=== PATIENT | male | born 1950 | race Caucasian/White ===

== ENCOUNTER 2020-08-23 12:00 | IRF | payer MEDICARE, OTHER, SELFPAY ==
--- NOTE | 2020-08-23 13:06 | PC.NURSE ---
This patient, Brice Bull, was admitted to [facility] Room 224-01. Patient/family oriented to hospital policies and general routines including ID bracelet, bed and alarms, visiting hours, pain management, procedures, bathroom and other care routines, personal items, smoking policy, room service/diet, and visiting hours. Information on how to activate the Rapid Response Team has been discussed. Patient/Family are encouraged to report perceived risks to care and to ask questions if they do not understand what they are told or what they should do.
[2020-08-23 14:00] VITALS: BP 153/68; PULSE 88; RESP 20; TEMP 36.9; O2SAT 98
[2020-08-23] MEDS: TAMSULOSIN HCL 0.4 MG CAPSULE PO (16:55)
[2020-08-23] MEDS: ATORVASTATIN 40 MG TABLET PO (20:05)
[2020-08-23] MEDS: OPTI-GEN TAB 1 TABLET PO (20:05)
[2020-08-23] MEDS: ENOXAPARIN 30 MG/0.3 ML SYRINGE SUB-Q (20:06)
[2020-08-23 22:00] VITALS: BP 158/90; PULSE 77; RESP 18; TEMP 36.6; O2SAT 97
[2020-08-24 05:30] LABS: Basophils Percent Auto 0.5 % (0.2-1.2); Eosinophils Absolute Auto 0.2 K/mm3 (0-0.3); Eosinophils Percent Auto 2.5 % (0-4.4); Hematocrit 38.5 % (42.0-52.0); Hemoglobin 12.9 g/dL (14.0-18.0); Immature Granulocyte Absolute 0.02 K/mm3 (0.00-0.031); Immature Granulocyte Percent A 0.3 % (0-0.5); Lymphocytes Absolute Auto 1.94 K/mm3 (0.9-3.2); Lymphocytes Percent Auto 29.8 % (18.3-44.2); Mean Corpuscular HGB Conc 33.5 g/dl (32-36); Mean Corpuscular Hemoglobin 28.5 pg (26-34); Mean Platelet Volume 10.3 fl (7.4-10.4); Monocytes Absolute Auto 0.6 K/mm3 (0.1-0.6); Monocytes Percent Auto 9.8 % (2.6-8.5); Neutrophils Absolute Auto 3.7 K/mm3 (1.3-6.7); Neutrophils Percent Auto 57.1 % (45.5-73.1); Platelet Count Result 226 k/mm3 (150-375); Red Blood Count 4.53 M/mm3 (4.6-6.20); Red Cell Distribution Width 13.2 % (11.5-14.5); White Blood Count 6.5 K/mm3 (4.5-10.0)
[2020-08-24 05:44] LABS: Anion Gap 6 mmol/L (8-16); Blood Urea Nitrogen 21 mg/dL (9-20); Calcium 9.4 mg/dL (8.4-10.2); Carbon Dioxide 31 mmol/L (22-30); Chloride 103 mmol/L (98-107); Estimated CRCL calculation 76 ml/min; Estimated Glomerular Filt Rate > 60; Glucose 119 mg/dL (75-110); Potassium 3.6 mmol/L (3.4-5.0); Sodium 140 mmol/L (137-145)
[2020-08-24 06:00] VITALS: BP 156/65; PULSE 69; RESP 18; TEMP 36.2; O2SAT 97
[2020-08-24 06:53] LABS: Glucose Point of Care 101 (65-105)
[2020-08-24] MEDS: ENOXAPARIN 30 MG/0.3 ML SYRINGE SUB-Q ×2 (09:00→20:45)
[2020-08-24] MEDS: SENNA/DOCUSATE SODIUM TABLET 2 TAB PO (09:00)
[2020-08-24] MEDS: PANTOPRAZOLE 40 MG TABLET PO (09:00)
[2020-08-24] MEDS: metFORMIN HCL XR 500 MG TAB.SR.24H PO (09:00)
[2020-08-24] MEDS: ASPIRIN 81 MG CHEWABLE TABLET PO (09:00)
[2020-08-24] MEDS: LOSARTAN POTASSIUM 50 MG TABLET PO (09:01)
[2020-08-24] MEDS: OPTI-GEN TAB 1 TABLET PO ×2 (09:01→20:34)
[2020-08-24] MEDS: MULTIVITAMINS THERAPEUTIC TAB (*BKC) 1 TABLET PO (09:01)
[2020-08-24] MEDS: polyethylene glycoL 3350 17 GM POWD.PACK PO (09:01)
--- NOTE | 2020-08-24 09:11 | WPDREHABHP ---
H&P: HPI History of Present Illness Date/Time: 08/24/20 09:12 Chief complaint: Spinal stenosis, Cervical region/MS Remv Narrative: Brice Bull is a 69 year old male Admitted to the acute rehab of [facility] with the primary rehab impairment category of spinal cord dysfunction which is nontraumatic in nature and has etiological diagnosis of severe cervical foraminal stenosis with myelopathy I saw this patient [id number] at 9:00 a.m. on 08/24 20 history of present illness. 69 years old right-handed male with prior medical history of severe cervical foraminal stenosis with myelopathy, attention, and type 2 diabetes mellitus was admitted to [facility] for elective cervical spinal surgery on August 17, 2020. Initially the patient was admitted in April of 2020 for this surgery, however he had an episode of V-tach after being induced and intubated which lasted [id number]. Closed chest compressions were initiated, no shock provided. Procedure was aborted and the patient was transferred to the PACU for further stabilization and workup. Cardiology was consulted and the patient was found to have bilateral PEs and chronic bilateral DVTs so he was started on Eliquis. He was subsequently followed by the physician as an outpatient and had an extensive evaluation, including a 30 day event monitor, echocardiogram, and left heart catheterization. He was found to have some coronary disease in his LAD with IFR 0.90 and therefore medically managed. On August 19, 2020 patient underwent a C4 corpectomy with C3-5 reconstruction and C7-T1 anterior diskectomy cervical fusion. He became hypotensive with widening of his QRS and HR 100. The patient required pressors and remained hypotensive for approximately 10 to 20 minutes. Was subsequently stable and his surgery was resumed with no further episodes. post operatively he was hypertensive with systolic blood pressure of 160 to 170. Patient remained on continuous telemetry throughout his hospitalization. His pain is controlled with oral analgesics. The patient is hemodynamically stable with a hemoglobin of 12.3. JULIETA drain has been removed without difficulty and intact on August 21, 2020 . he was discharged to rehab on Lovenox for DVT prophylaxis and will remain on Lovenox until consistently ambulating 150ft. He will restart oral anticoagulation 2 weeks from surgery date. The patient has not traveled outside the [place] or had contact with someone who is ill that has traveled outside the [place] in the last 21 days. The patient has not traveled to an area of the [place] there is experiencing no transmission of the Coronavirus and has not had close personal contact with anyone that Has. The patient does not have a fever the patient is not experiencing lower respiratory illness symptoms. Therapy was initiated at the acute care facility and the patient was transferred to us from [facility] on August 23, 2020 FALLS OR SURGERIES: the patient has had major surgery in the last 100 days and prior to this admission. The patient reports 2 falls in the past year. 1 while cleaning the gutters and tripped over a large rock. The 2nd fall while lost his balance as he was turning the mower. the patient has had falls with mild injuries noted in the past here. PAST MEDICAL HISTORY: Hypertension since 2014, Type 2 diabetes mellitus, hyperlipidemia( intolerant statin therapy on Co Q10)( 70% lesion to mid lad, nonischemic by IFR measurements) no revascularization but> 50% stenotic coronary, other arrhythmia, chronic bilateral DVT, bilateral PE, osteoarthritis, orthopnea, pedal edema, obstructive sleep apnea, cardiac arrest, ventricular tachycardia, hypotension induction resulting in coronary hypoperfusion with underlying known obstructive disease. PAST SURGICAL HISTORY: Adenoidectomy 1973, cardiac catheterization, right hip surgery 2013, knee arthrodesis, ton
[2020-08-24] MEDS: FLUTICASONE PROPIONATE 0.05% NA SPR 16 GM BTL (*BKC) 1 SPRAY NASAL ×2 (09:47→20:35)
[2020-08-24 12:51] VITALS: BMI 29.4
[2020-08-24 14:00] VITALS: BP 148/76; PULSE 82; RESP 16; TEMP 36.4; O2SAT 96
--- NOTE | 2020-08-24 15:13 | PCPTNOTE ---
Brice Bull was evaluated for a wheeled walker on 08/24/2020 by this physical therapist. The wheeled walker will resolve patient's mobility limitations and will be used for ADL's within the home. The patient can safely use the wheeled walker. ?The wheeled walker will resolve the patient?s mobility deficits, including gait and transfers.
--- NOTE | 2020-08-24 15:30 | RPD ---
INDIVIDUALIZED PLAN OF CARE FOR Brice Bull Brief Synthesis of Pre-Admission Screen, Post-Admission Evaluation and Therapy Evaluations: The patient presents to rehab with severe cervical foraminal stenosis with myelopathy. Comorbidities include s/p C4 corpectomy and C3-5 reconstruction, C7-T1 anterior discectomy cervical fusion (ACDF), low back pain, lower extremity weakness, cervical stenosis of spine, hypertension, GERD, type 2 diabetes mellitus, CAD, ventricular tachycardia, chronic DVTs, bilateral PEs, osteoarthritis, orthopenia, pedal edema, SAAD,and dysphagia. The complexity of the patient's medical management, nursing, and therapy needs require an inpatient rehab hospital stay with a physician-led interdisciplinary team approach. The patient?s needs will be best met in an intensive program vs. at a lower level of care. The patient requires physician services for medical oversight, management of post-op complications in setting of present comorbidities, and pain management. The patient requires nursing services for anticoagulation therapy, diabetes training, DVT prophylactics, infection protection, medication management and education, pressure relief, and wound care Deficits include:ADLs, Balance, Endurance, Family Training/Education, Mobility, Pain Management, ROM, Safety, Strength, Transfers, Swallowing Jigsaw Operator/Case Management for: Discharge Planning and Patient/Family Counseling Physical Therapy: 5 days per week for 75 minutes. Treatments may include: Therapeutic Exercise, Gait Training, Neuromuscular Re-education, Transfer Training, Community Reintegration, Bed Mobility, Patient/Family Education, Wheelchair Mobility Group Therapy/Concurrent Therapy Rationales: -Improve attention span during functional activities in a distracted environment. -Enhance problem solving and/or adequate judgment skills during functional activities in a distracted environment. -Promote increased safety awareness in a distracted environment to reduce fall risk with functional tasks, transfers, and ambulation to allow a more safe, self-sufficient return to the home environment. -Improve dynamic balance skills to promote safety and independence with functional activities in a distracted environment for maximum gain. Occupational Therapy: 5 days per week for 75 minutes. Treatments may include: Therapeutic Exercise, Therapeutic Activity, Cognitive Training, Self-Care Transfer Training, Community Reintegration, Home Management, Patient/Family Education, Wheelchair Mobility Training, Energy Conservation Training Group Therapy/Concurrent Therapy Rationales: -Allow therapist to observe and teach generalization and carry-over of skills learned in individual therapy. -Enhance problem solving and sequencing skills during therapeutic activities in a distracted environment. -Promote increased safety awareness in a realistic setting to reduce fall risk with functional tasks due to visual and verbal distractions. -Increase functional level with ADLs, ADL transfers and use of adaptive equipment through therapeutic activities with others while promoting safety to allow a more safe, self-sufficient return home. Speech Therapy: 5 days per week for 30 minutes. Treatments may include: Dysphasia Therapy, Speech/Language/Communication Therapy, Cognitive Training, Patient/Family Education Group Therapy/Concurrent Therapy - Rationale: -Allow therapist to observe and teach generalization and carry-over of skills learned in individual therapy. -Improve comprehension skills with complex or abstract ideas through discussion in a realistic setting. -Enhance problem solving skills with complex issues during activities in a distracted environment. -Promote increased memory skills and concentration in a distracted environment for a safe transition home. -Improve attention and focus with language/communication skills in a realistic and supportive therapeutic setting. -Allow for practice of expression of b
[2020-08-24] MEDS: TAMSULOSIN HCL 0.4 MG CAPSULE PO (17:19)
[2020-08-24] MEDS: ATORVASTATIN 40 MG TABLET PO (20:34)
[2020-08-24 21:04] VITALS: BP 138/71; PULSE 71; RESP 18; TEMP 36.4; O2SAT 99
[2020-08-25 05:43] VITALS: BP 146/70; PULSE 73; RESP 18; TEMP 36.1; O2SAT 98
[2020-08-25 06:42] LABS: Glucose Point of Care 122 (65-105)
[2020-08-25] MEDS: metFORMIN HCL XR 500 MG TAB.SR.24H PO (08:04)
[2020-08-25] MEDS: FLUTICASONE PROPIONATE 0.05% NA SPR 16 GM BTL (*BKC) 1 SPRAY NASAL ×2 (08:04→20:47)
[2020-08-25] MEDS: PANTOPRAZOLE 40 MG TABLET PO (08:05)
[2020-08-25] MEDS: LOSARTAN POTASSIUM 50 MG TABLET PO (08:05)
[2020-08-25] MEDS: ENOXAPARIN 30 MG/0.3 ML SYRINGE SUB-Q ×2 (08:06→20:47)
[2020-08-25] MEDS: ASPIRIN 81 MG CHEWABLE TABLET PO (08:06)
[2020-08-25 14:00] VITALS: BP 147/75; PULSE 98; RESP 20; TEMP 36.6; O2SAT 98
[2020-08-25] MEDS: TAMSULOSIN HCL 0.4 MG CAPSULE PO (18:20)
[2020-08-25 20:00] VITALS: PULSE 77; RESP 18; O2SAT 97
[2020-08-25] MEDS: ATORVASTATIN 40 MG TABLET PO (20:46)
[2020-08-25] MEDS: OPTI-GEN TAB 1 TABLET PO (20:47)
[2020-08-25 22:00] VITALS: BP 154/75; PULSE 77; RESP 18; TEMP 36.4; O2SAT 97
[2020-08-26 05:48] LABS: Glucose Point of Care 125 (65-105)
[2020-08-26 06:00] VITALS: BP 158/75; PULSE 77; RESP 16; TEMP 36.2; O2SAT 95
[2020-08-26] MEDS: LORATADINE 10 MG TABLET PO (06:52)
[2020-08-26 08:00] VITALS: PULSE 77; RESP 16; O2SAT 95
[2020-08-26] MEDS: PANTOPRAZOLE 40 MG TABLET PO (09:26)
[2020-08-26] MEDS: OPTI-GEN TAB 1 TABLET PO ×2 (09:26→21:05)
[2020-08-26] MEDS: ASPIRIN 81 MG CHEWABLE TABLET PO (09:26)
[2020-08-26] MEDS: LOSARTAN POTASSIUM 50 MG TABLET PO (09:26)
[2020-08-26] MEDS: metFORMIN HCL XR 500 MG TAB.SR.24H PO (09:26)
[2020-08-26] MEDS: FLUTICASONE PROPIONATE 0.05% NA SPR 16 GM BTL (*BKC) 1 SPRAY NASAL ×2 (09:27→21:04)
[2020-08-26] MEDS: SENNA/DOCUSATE SODIUM TABLET 2 TAB PO (09:27)
[2020-08-26] MEDS: ENOXAPARIN 30 MG/0.3 ML SYRINGE SUB-Q ×2 (09:27→21:04)
[2020-08-26] MEDS: polyethylene glycoL 3350 17 GM POWD.PACK PO (09:28)
--- NOTE | 2020-08-26 11:57 | WPDNEURORHBP ---
Subjective Date/time seen: 08/26/20 11:57 69 years old has been admitted to the rehab floor with spinal cord dysfunction that is nontraumatic in nature and the etiological diagnosis of severe cervical foraminal stenosis with myelopathy in addition to multiple comorbid conditions but particularly GERD, type 2 diabetes mellitus, hypertension,coronary artery disease with ventricular tachycardia, osteoarthritis and obstructive sleep apnea and dysphagia Functional Status Ambulation Ability Ability to Ambulate 10 Feet: Contact Guard Ability to Ambulate 50 Feet With 2 Turns: Contact Guard Ability to Ambulate 150 Feet: Contact Guard Ambulation Assistive Devices: Walker, Wheeled Transfers Ability Ability to Transfer In/Out of Chair: Standby Assistance Exam Narrative: Exam Narrative: examination today revealed him to be awake alert cooperative in no obvious acute distress ear nose throat examination normal mucous membranes moist no rhinorrhea neck is supple heart regular with no murmur lungs clear to auscultation abdomen is soft nontender normal bowel sounds and neuro examination is unchanged Objective Data Vital Signs Vital Signs: Vital Signs - 24 hr 08/25/20 14:00 08/25/20 20:00 08/25/20 22:00 Temperature 36.6 C 36.4 C L Pulse Rate 98 77 77 Respiratory Rate 20 18 18 Blood Pressure 147/75 H 154/75 H Pulse Oximetry 98 97 97 08/26/20 06:00 08/26/20 08:00 Temperature 36.2 C L Pulse Rate 77 77 Respiratory Rate 16 16 Blood Pressure 158/75 H Pulse Oximetry 95 95 Intake/Output Intake/Output: Intake & Output 08/23/20 08/24/20 08/25/20 08/26/20 23:59 23:59 23:59 23:59 Intake Total 1080 720 240 Balance 1080 720 240 Meds/Results Medications: Active Medications Generic Name Dose Route Start Last Admin Trade Name Freq PRN Reason Stop Dose Admin Acetaminophen 1,000 mg 08/23/20 15:50 Acetaminophen 500 Mg Tablet PO Q6H PRN Pain (Scale Score 1-3) Apixaban 5 mg 09/04/20 09:00 Apixaban 5 Mg Tablet BY MOUTH 10/04/20 09:01 BID JUAN ALBERTO Aspirin 81 mg 08/24/20 09:00 08/26/20 09:26 Aspirin 81 Mg Chewable Tablet PO 81 mg DAILY JUAN ALBERTO Administration Atorvastatin Calcium 40 mg 08/23/20 21:00 11/03/20 20:46 Atorvastatin 40 Mg Tablet PO 40 mg HS JUAN ALBERTO Administration Benzocaine 1 lozenge 08/23/20 15:50 Benzocaine/Menthol (*Bkc) 18 Ea Lozenge PO Q4H PRN Sore Throat Bisacodyl 10 mg 08/23/20 15:50 Bisacodyl 10 Mg Suppository RECTAL DAILY PRN Constipation Cyclobenzaprine HCl 5 mg 08/23/20 15:50 Cyclobenzaprine Hcl 5 Mg Tablet PO Q8H PRN Muscle Spasm Dextrose 12.5 gm 08/23/20 19:15 Dextrose 50% 25 Gm/50 Ml Syringe IV PUSH PRN PRN Hypoglycemia Protocol Enoxaparin Sodium 30 mg 08/23/20 21:00 08/26/20 09:27 Enoxaparin 30 Mg/0.3 Ml Syringe SUB-Q 09/03/20 23:59 30 mg Q12H JUAN ALBERTO Administration Fluticasone Propionate 1 spray 08/24/20 09:00 08/26/20 09:27 Fluticasone Propionate 0.05% Na Spr 16 Gm Btl (*Bkc) NASAL 1 spray Q12HR JUAN ALBERTO Administration Glucagon 1 mg 08/23/20 19:15 Glucagon For Inj 1 Mg Vial IM PRN PRN Hypoglycemia Protocol Glucose 15 gm 08/23/20 19:15 Glucose Oral Gel 15 Gm Of Glucse In 37.5 Gm Tube PO PRN PRN Hypoglycemia Protocol Dextrose 1,000 mls @ 100 mls/hr 08/23/20 19:15 Dextrose 5% 1,000 Ml IVPB PRN PRN Hypoglycemia Protocol Loratadine 10 mg 08/23/20 15:50 08/26/20 06:52 Loratadine 10 Mg Tablet PO 10 mg DAILY PRN Administration Allergy Symptoms Losartan Potassium 50 mg 08/24/20 09:00 08/26/20 09:26 Losartan Potassium 50 Mg Tablet PO 50 mg DAILY JUAN ALBERTO Administration Metformin HCl 500 mg 08/24/20 08:00 08/26/20 09:26 Metformin Hcl Xr 500 Mg Tab.Sr.24h PO 500 mg DAILY@0800 JUAN ALBERTO Administration Multivitamins Therapeutic 1 tablet 08/24/20 09:00 08/25/20 08:05 Multivitamins Therapeutic
[2020-08-26 14:00] VITALS: BP 147/70; PULSE 83; RESP 18; TEMP 36.6; O2SAT 97
[2020-08-26] MEDS: TAMSULOSIN HCL 0.4 MG CAPSULE PO (17:07)
[2020-08-26] MEDS: ATORVASTATIN 40 MG TABLET PO (21:04)
[2020-08-26] MEDS: CYCLOBENZAPRINE HCL 5 MG TABLET PO (21:06)
[2020-08-26 22:00] VITALS: BP 164/75; PULSE 87; RESP 20; TEMP 36.9; O2SAT 95
[2020-08-27 05:54] VITALS: BP 139/71; PULSE 74; RESP 16; TEMP 36.2; O2SAT 98
[2020-08-27 07:14] LABS: Glucose Point of Care 100 (65-105)
[2020-08-27 08:50] VITALS: PULSE 74; RESP 16; O2SAT 98
[2020-08-27] MEDS: metFORMIN HCL XR 500 MG TAB.SR.24H PO (08:53)
[2020-08-27] MEDS: FLUTICASONE PROPIONATE 0.05% NA SPR 16 GM BTL (*BKC) 1 SPRAY NASAL ×2 (08:53→20:27)
[2020-08-27] MEDS: SENNA/DOCUSATE SODIUM TABLET 2 TAB PO (08:53)
[2020-08-27] MEDS: ENOXAPARIN 30 MG/0.3 ML SYRINGE SUB-Q ×2 (08:53→20:27)
[2020-08-27] MEDS: PANTOPRAZOLE 40 MG TABLET PO (08:54)
[2020-08-27] MEDS: LOSARTAN POTASSIUM 50 MG TABLET PO (08:54)
[2020-08-27] MEDS: ASPIRIN 81 MG CHEWABLE TABLET PO (08:54)
[2020-08-27] MEDS: polyethylene glycoL 3350 17 GM POWD.PACK PO (08:54)
[2020-08-27] MEDS: OPTI-GEN TAB 1 TABLET PO ×2 (08:54→20:27)
--- NOTE | 2020-08-27 11:24 | WPDNEURORHBP ---
Subjective Date/time seen: 08/27/20 11:24 61 years old with spinal cord dysfunction that is nontraumatic in nature and a history of cervical foraminal stenosis and myelopathy is involving the physical therapy and occupational therapy on a regular basis showing the signs of improvement able to ambulate with a wheeled walker and contact guard up to 150ft Functional Status Ambulation Ability Ability to Ambulate 10 Feet: Contact Guard Ability to Ambulate 50 Feet With 2 Turns: Contact Guard Ability to Ambulate 150 Feet: Contact Guard Ambulation Assistive Devices: Walker, Wheeled Transfers Ability Ability to Transfer In/Out of Chair: Standby Assistance Exam Narrative: Exam Narrative: on examination he is awake alert in no distress his speech nor dysphasic no dysarthric not dysphonic neck is supple heart regular lungs clear abdomen soft nontender normal bowel sounds examination unchanged the physical therapy is considering applying the electrical stimulation is throat to improve the function that was ordered Objective Data Vital Signs Vital Signs: Vital Signs - 24 hr 08/26/20 14:00 08/26/20 22:00 08/27/20 05:54 Temperature 36.6 C 36.9 C 36.2 C L Pulse Rate 83 87 74 Respiratory Rate 18 20 16 Blood Pressure 147/70 H 164/75 H 139/71 Pulse Oximetry 97 95 98 08/27/20 08:50 Temperature Pulse Rate 74 Respiratory Rate 16 Blood Pressure Pulse Oximetry 98 Intake/Output Intake/Output: Intake & Output 08/24/20 08/25/20 08/26/20 08/27/20 23:59 23:59 23:59 23:59 Intake Total 1080 720 720 240 Balance 1080 720 720 240 Meds/Results Medications: Active Medications Generic Name Dose Route Start Last Admin Trade Name Freq PRN Reason Stop Dose Admin Acetaminophen 1,000 mg 08/23/20 15:50 Acetaminophen 500 Mg Tablet PO Q6H PRN Pain (Scale Score 1-3) Apixaban 5 mg 09/04/20 09:00 Apixaban 5 Mg Tablet BY MOUTH 10/04/20 09:01 BID JUAN ALBERTO Aspirin 81 mg 08/24/20 09:00 08/27/20 08:54 Aspirin 81 Mg Chewable Tablet PO 81 mg DAILY JUAN ALBERTO Administration Atorvastatin Calcium 40 mg 08/23/20 21:00 08/26/20 21:04 Atorvastatin 40 Mg Tablet PO 40 mg HS JUAN ALBERTO Administration Benzocaine 1 lozenge 08/23/20 15:50 Benzocaine/Menthol (*Bkc) 18 Ea Lozenge PO Q4H PRN Sore Throat Bisacodyl 10 mg 08/23/20 15:50 Bisacodyl 10 Mg Suppository RECTAL DAILY PRN Constipation Cyclobenzaprine HCl 5 mg 08/23/20 15:50 08/26/20 21:06 Cyclobenzaprine Hcl 5 Mg Tablet PO 5 mg Q8H PRN Administration Muscle Spasm Dextrose 12.5 gm 08/23/20 19:15 Dextrose 50% 25 Gm/50 Ml Syringe IV PUSH PRN PRN Hypoglycemia Protocol Enoxaparin Sodium 30 mg 08/23/20 21:00 08/27/20 08:53 Enoxaparin 30 Mg/0.3 Ml Syringe SUB-Q 09/03/20 23:59 30 mg Q12H JUAN ALBERTO Administration Fluticasone Propionate 1 spray 08/24/20 09:00 08/27/20 08:53 Fluticasone Propionate 0.05% Na Spr 16 Gm Btl (*Bkc) NASAL 1 spray Q12HR JUAN ALBERTO Administration Glucagon 1 mg 08/23/20 19:15 Glucagon For Inj 1 Mg Vial IM PRN PRN Hypoglycemia Protocol Glucose 15 gm 08/23/20 19:15 Glucose Oral Gel 15 Gm Of Glucse In 37.5 Gm Tube PO PRN PRN Hypoglycemia Protocol Dextrose 1,000 mls @ 100 mls/hr 08/23/20 19:15 Dextrose 5% 1,000 Ml IVPB PRN PRN Hypoglycemia Protocol Loratadine 10 mg 08/23/20 15:50 08/26/20 06:52 Loratadine 10 Mg Tablet PO 10 mg DAILY PRN Administration Allergy Symptoms Losartan Potassium 50 mg 08/24/20 09:00 08/27/20 08:54 Losartan Potassium 50 Mg Tablet PO 50 mg DAILY JUAN ALBERTO Administration Melatonin 3 mg 08/27/20 21:00 Melatonin 3 Mg Tablet PO HS JUAN ALBERTO Metformin HCl 500 mg 08/24/20 08:00 08/27/20 08:53 Metformin Hcl Xr 500 Mg Tab.Sr.24h PO 500 mg DAILY@0800 JUAN ALBERTO Administration Multivitamins Therapeutic 1 tablet 08/24/20 09:00 08/25/20 08:05 Multivitamins Therapeut
--- NOTE | 2020-08-27 12:51 | PCDIET ---
Nutrition Follow-Up Complete: Nutrition Diagnosis: Suboptimal oral intake related to recent surgery as evidenced by patient statements, reporting minor weight loss since surgery. Nutrition Goal: Patient to consume 75% of meals/supplements or greater and maintain weight. Goal met. Patient consuming 75-100% of most meals on minced and moist diet. Ensure Enlive now ordered prn, per patient request. Blood sugars well controlled at present, though if intakes are maintained, patient would benefit from carbohydrate controlled diet longterm. Last recorded weight is 98.4 kg. Recommend obtaining new weight. Bowel Motility: Last documented BM on 08/24/20. Labs Reviewed: Glu (100) Meds Noted: Lipitor, Cozaar, Glucophage, MVI, Ocuvite, Protonix, Miralax, Senna Additional Notes: Anterior neck with surgical site. No other skin breakdown documented. Will continue to monitor with same goal. Nutrition Monitoring and Evaluation: Follow up every 7 days.
[2020-08-27 14:00] VITALS: BP 141/71; PULSE 82; RESP 16; TEMP 36.9; O2SAT 97
--- NOTE | 2020-08-27 15:37 | PC.NURSE ---
C-Collar to be utilized until patient's follow-up appointment on October 12, 2020.
[2020-08-27] MEDS: TAMSULOSIN HCL 0.4 MG CAPSULE PO (18:05)
[2020-08-27] MEDS: ATORVASTATIN 40 MG TABLET PO (20:26)
[2020-08-27] MEDS: MELATONIN 3 MG TABLET PO (20:26)
[2020-08-27 22:00] VITALS: BP 136/64; PULSE 79; RESP 18; TEMP 36.7; O2SAT 94
[2020-08-28 06:00] VITALS: BP 154/77; PULSE 73; RESP 18; TEMP 36.4; O2SAT 95
[2020-08-28 06:08] LABS: Glucose Point of Care 113 (65-105)
[2020-08-28] MEDS: ASPIRIN 81 MG CHEWABLE TABLET PO (08:32)
[2020-08-28] MEDS: ENOXAPARIN 30 MG/0.3 ML SYRINGE SUB-Q (08:32)
[2020-08-28] MEDS: metFORMIN HCL XR 500 MG TAB.SR.24H PO (08:32)
[2020-08-28] MEDS: OPTI-GEN TAB 1 TABLET PO ×2 (08:33→20:18)
[2020-08-28] MEDS: LOSARTAN POTASSIUM 50 MG TABLET PO (08:33)
[2020-08-28] MEDS: FLUTICASONE PROPIONATE 0.05% NA SPR 16 GM BTL (*BKC) 1 SPRAY NASAL ×2 (08:33→20:18)
[2020-08-28] MEDS: PANTOPRAZOLE 40 MG TABLET PO (08:33)
[2020-08-28 14:00] VITALS: BP 138/67; PULSE 88; RESP 16; TEMP 37; O2SAT 96
[2020-08-28] MEDS: TAMSULOSIN HCL 0.4 MG CAPSULE PO (17:08)
[2020-08-28] MEDS: SENNA/DOCUSATE SODIUM TABLET 2 TAB PO (17:08)
[2020-08-28] MEDS: ATORVASTATIN 40 MG TABLET PO (20:18)
[2020-08-28] MEDS: APIXABAN 5 MG TABLET BY MOUTH (20:18)
[2020-08-28 21:06] VITALS: BP 134/67; PULSE 76; RESP 18; TEMP 36.6; O2SAT 98
[2020-08-29 05:07] VITALS: BP 129/73; PULSE 73; RESP 18; TEMP 36.2; O2SAT 97
[2020-08-29 06:29] LABS: Glucose Point of Care 112 (65-105)
[2020-08-29] MEDS: FLUTICASONE PROPIONATE 0.05% NA SPR 16 GM BTL (*BKC) 1 SPRAY NASAL ×2 (08:34→20:27)
[2020-08-29] MEDS: PANTOPRAZOLE 40 MG TABLET PO (08:35)
[2020-08-29] MEDS: ASPIRIN 81 MG CHEWABLE TABLET PO (08:35)
[2020-08-29] MEDS: metFORMIN HCL XR 500 MG TAB.SR.24H PO (08:35)
[2020-08-29] MEDS: OPTI-GEN TAB 1 TABLET PO ×2 (08:36→20:27)
[2020-08-29] MEDS: LOSARTAN POTASSIUM 50 MG TABLET PO (08:36)
[2020-08-29] MEDS: APIXABAN 5 MG TABLET BY MOUTH ×2 (08:36→20:25)
--- NOTE | 2020-08-29 12:55 | WPDNEURORHBP ---
Subjective Date/time seen: 08/29/20 12:55 61 years old admitted to the rehab with spinal cord dysfunction which is known traumatic in nature and has history of myelopathy involving the physical therapy and occupational therapy at present is walking wheeled walker up to 150ft independently transferring in and out of chair independently Review of Systems Review of Systems: All systems reviewed & are unremarkable except as noted in HPI and below Functional Status Ambulation Ability Ability to Ambulate 10 Feet: Independent Ability to Ambulate 50 Feet With 2 Turns: Independent Ability to Ambulate 150 Feet: Independent Ambulation Assistive Devices: Walker, Wheeled Transfers Ability Ability to Transfer In/Out of Chair: Independent Exam Narrative: Exam Narrative: examination reveals him to be awake alert no distress normal speech with no dysphagia or dysarthria neck is supple regular lungs clear abdomen is soft and neuro unchanged Objective Data Vital Signs Vital Signs: Vital Signs - 24 hr 08/28/20 14:00 08/28/20 21:06 08/29/20 05:07 Temperature 37.0 C 36.6 C 36.2 C L Pulse Rate 88 76 73 Respiratory Rate 16 18 18 Blood Pressure 138/67 134/67 129/73 Pulse Oximetry 96 98 97 Intake/Output Intake/Output: Intake & Output 08/26/20 08/27/20 08/28/20 08/29/20 23:59 23:59 23:59 23:59 Intake Total 720 1080 720 240 Balance 720 1080 720 240 Meds/Results Medications: Active Medications Generic Name Dose Route Start Last Admin Trade Name Freq PRN Reason Stop Dose Admin Acetaminophen 1,000 mg 08/23/20 15:50 Acetaminophen 500 Mg Tablet PO Q6H PRN Pain (Scale Score 1-3) Apixaban 5 mg 08/28/20 21:00 08/29/20 08:36 Apixaban 5 Mg Tablet BY MOUTH 5 mg Q12HR JUAN ALBERTO Administration Aspirin 81 mg 08/24/20 09:00 08/29/20 08:35 Aspirin 81 Mg Chewable Tablet PO 81 mg DAILY JUAN ALBERTO Administration Atorvastatin Calcium 40 mg 08/23/20 21:00 08/28/20 20:18 Atorvastatin 40 Mg Tablet PO 40 mg HS JUAN ALBERTO Administration Benzocaine 1 lozenge 08/23/20 15:50 Benzocaine/Menthol (*Bkc) 18 Ea Lozenge PO Q4H PRN Sore Throat Bisacodyl 10 mg 08/23/20 15:50 Bisacodyl 10 Mg Suppository RECTAL DAILY PRN Constipation Cyclobenzaprine HCl 5 mg 08/23/20 15:50 08/26/20 21:06 Cyclobenzaprine Hcl 5 Mg Tablet PO 5 mg Q8H PRN Administration Muscle Spasm Dextrose 12.5 gm 08/23/20 19:15 Dextrose 50% 25 Gm/50 Ml Syringe IV PUSH PRN PRN Hypoglycemia Protocol Fluticasone Propionate 1 spray 08/24/20 09:00 08/29/20 08:34 Fluticasone Propionate 0.05% Na Spr 16 Gm Btl (*Bkc) NASAL 1 spray Q12HR JUAN ALBERTO Administration Glucagon 1 mg 08/23/20 19:15 Glucagon For Inj 1 Mg Vial IM PRN PRN Hypoglycemia Protocol Glucose 15 gm 08/23/20 19:15 Glucose Oral Gel 15 Gm Of Glucse In 37.5 Gm Tube PO PRN PRN Hypoglycemia Protocol Dextrose 1,000 mls @ 100 mls/hr 08/23/20 19:15 Dextrose 5% 1,000 Ml IVPB PRN PRN Hypoglycemia Protocol Loratadine 10 mg 08/23/20 15:50 08/26/20 06:52 Loratadine 10 Mg Tablet PO 10 mg DAILY PRN Administration Allergy Symptoms Losartan Potassium 50 mg 08/24/20 09:00 08/29/20 08:36 Losartan Potassium 50 Mg Tablet PO 50 mg DAILY JUAN ALBERTO Administration Melatonin 3 mg 08/27/20 21:00 08/28/20 20:15 Melatonin 3 Mg Tablet PO Not Given HS JUAN ALBERTO Metformin HCl 500 mg 08/24/20 08:00 08/29/20 08:35 Metformin Hcl Xr 500 Mg Tab.Sr.24h PO 500 mg DAILY@0800 JUAN ALBERTO Administration Multivitamins Therapeutic 1 tablet 08/24/20 09:00 08/25/20 08:05 Multivitamins Therapeutic Tab (*Bkc) PO Not Given DAILY [facility] Multivitamins/Minerals 1 tablet 08/23/20 21:00 08/29/20 08:36 Opti-Gen Tab PO 1 tablet Q12HR [facility] Administration Non-Formulary Medication 100 mg 08/24/20 09:00 Coenzyme Q10 PO 09/23/20 09:01 DAILY [facility] Ondansetron HCl
[2020-08-29 14:00] VITALS: BP 137/68; PULSE 82; RESP 18; TEMP 36.8; O2SAT 96
[2020-08-29] MEDS: TAMSULOSIN HCL 0.4 MG CAPSULE PO (17:13)
[2020-08-29] MEDS: ATORVASTATIN 40 MG TABLET PO (20:25)
[2020-08-29 22:00] VITALS: BP 128/60; PULSE 79; RESP 20; TEMP 36.6; O2SAT 97
[2020-08-30 06:00] VITALS: BP 135/72; PULSE 73; RESP 20; TEMP 36.3; O2SAT 97
[2020-08-30 06:48] LABS: Glucose Point of Care 133 (65-105)
[2020-08-30] MEDS: ASPIRIN 81 MG CHEWABLE TABLET PO (08:33)
[2020-08-30] MEDS: FLUTICASONE PROPIONATE 0.05% NA SPR 16 GM BTL (*BKC) 1 SPRAY NASAL (08:34)
[2020-08-30] MEDS: SENNA/DOCUSATE SODIUM TABLET 2 TAB PO (08:34)
[2020-08-30] MEDS: LOSARTAN POTASSIUM 50 MG TABLET PO (08:34)
[2020-08-30] MEDS: PANTOPRAZOLE 40 MG TABLET PO (08:34)
[2020-08-30] MEDS: OPTI-GEN TAB 1 TABLET PO (08:34)
[2020-08-30] MEDS: metFORMIN HCL XR 500 MG TAB.SR.24H PO (08:35)
[2020-08-30] MEDS: APIXABAN 5 MG TABLET BY MOUTH (08:35)
[2020-08-30 10:03] VITALS: PULSE 73; RESP 20; O2SAT 97
--- NOTE | 2020-08-31 11:28 | PM.DS ---
DS: Admitting Diagnosis Admitting Diagnosis Admitting Diagnosis: Severe cervical foraminal stenosis with myelopathy admitted to the acute rehab of [facility] with a primary rehab impairment category of his spinal cord dysfunction which is non traumatic in nature and had the etiological diagnosis of severe cervical foraminal stenosis with myelopathy in addition to the active comorbid conditions of hypertension, GERD, type 2 diabetes mellitus, coronary artery disease, ventricular tachycardia, chronic DVTs, bilateral PEs, osteoarthritis, and pedal edema, in addition to obstructive sleep apnea and dysphagia. level of functions at the time of admission Eating [Set Up Only] Oral Care [] substantial Toileting Hygiene [] partial assistance Shower/Bathing [] substantial Upper Body Dressing [] substantial Lower Body Dressing [] substantial Donning/[place] Footwear [] dependent Rolling Left and Right [] supervision Sit to Lying [] supervision Lying to Sitting [] supervision Sit to Stand [] partial assistance Bed to Chair Transfers [] partial assistance Toilet Transfers [] partial assistance Car Transfers [] partial assistance Walking 10' [] substantial Walking 50' with Two Turns [] substantial Walking 150' [] substantial Curb or Step [] partial assistance 4 Steps [] partial assistance 12 Steps [] unable Picking Up Object [] substantial [Wheelchair Mobility 50'] [] not applicable [Wheelchair Mobility 150'] [] not applicable GOALS: Eating [INDEPENDENT] Oral Care [INDEPENDENT] Toileting Hygiene [INDEPENDENT] Shower/Bathing substantial Upper Body Dressing partial assistance Lower Body Dressing [INDEPENDENT] Donning/[place] Footwear [INDEPENDENT] Rolling Left and Right [INDEPENDENT] Sit to Lying [INDEPENDENT] Lying to Sitting [INDEPENDENT] Sit to Stand [INDEPENDENT] Bed to Chair Transfers [INDEPENDENT] Toilet Transfers [INDEPENDENT] Car Transfers [INDEPENDENT] Walking 10' partial assistance Walking 50' with Two Turns [INDEPENDENT] Walking 150' [INDEPENDENT] Curb or Step [INDEPENDENT] 4 Steps [INDEPENDENT] 12 Steps [INDEPENDENT] Picking Up Object [INDEPENDENT] [Wheelchair Mobility 50'] not applicable [Wheelchair Mobility 150'] not applicable DISCHARGE PERFORMANCE: Eating [INDEPENDENT] Oral Care [INDEPENDENT] Toileting Hygiene [INDEPENDENT] Shower/Bathing [INDEPENDENT] Upper Body Dressing partial assistance Lower Body Dressing [INDEPENDENT] Donning/[place] Footwear supervision Rolling Left and Right [INDEPENDENT] Sit to Lying [INDEPENDENT] Lying to Sitting [INDEPENDENT] Sit to Stand [INDEPENDENT] Bed to Chair Transfers [INDEPENDENT] Toilet Transfers [INDEPENDENT] Car Transfers [INDEPENDENT] Walking 10' [INDEPENDENT] Walking 50' with Two Turns [INDEPENDENT] Walking 150' [INDEPENDENT] Curb or Step [INDEPENDENT] 4 Steps [INDEPENDENT] 12 Steps [INDEPENDENT] Picking Up Object [INDEPENDENT] [Wheelchair Mobility 50'] not applicable [Wheelchair Mobility 150'] not applicable had no falls during the entire hospitalization discharged to his home with outpatient physical therapy and condition definitely improved DS: Summary Time Spent with Patient Time attestation: Total time spent providing and/or coordinating discharge services: Exam Narrative: Exam Narrative: revealed him to be awake alert cooperative in no obvious acute distress head normocephalic with no cranial bruit ear nose throat examination normal neck supple with no cervical bruits no thyromegaly no lymphadenopathy heart regular with no murmur lungs clear to auscultation abdomen is soft with no organomegaly neurological examination revealed him to be awake alert his speech not dysphasic not dysarthric pupils round regular feels the vision full extraocular muscle full face symmetrical tongue midline motor examination revealed him to have decreased strength in the upper and lower extremities more so in the upper extremities with hyperreflexia in the lower extremities and up
== END 2020-08-30 12:10 | disposition home or self-care (01) | DRG 560 ==
PROVIDERS: Admitting Provider Psychiatry & Neurology Neurology; Visit Provider Psychiatry & Neurology Neurology
DX: Z47.89 Encounter for other orthopedic aftercare (principal); G99.2 Myelopathy in diseases classified elsewhere; M48.02 Spinal stenosis, cervical region; E78.5 Hyperlipidemia, unspecified; E11.9 Type 2 diabetes mellitus without complications; G47.33 Obstructive sleep apnea (adult) (pediatric); I10 Essential (primary) hypertension; I25.10 Atherosclerotic heart disease of native coronary artery without angina pectoris; K21.9 Gastro-esophageal reflux disease without esophagitis; M19.90 Unspecified osteoarthritis, unspecified site; R13.10 Dysphagia, unspecified; R60.9 Edema, unspecified; R06.01 Orthopnea; Z86.74 Personal history of sudden cardiac arrest; Z86.711 Personal history of pulmonary embolism; Z86.718 Personal history of other venous thrombosis and embolism; Z79.84 Long term (current) use of oral hypoglycemic drugs
CPT/HCPCS: 36415; 80048; 85025; 92526; 97110; 97116; 97161; 97166; 97530; 97535; A9270; J1650

== ENCOUNTER 2022-03-05 18:50 | Observation (INO) | payer MEDICARE, SELFPAY ==
--- NOTE | ~2022-03-05 | XR_ITS ---
EXAMINATION: XR chest 1V portable Exam Date/Time: 03/05/2022 19:10 CDT CLINICAL HISTORY: weakness, SOB, ON BIPAP Comparison: None available. RESULT: Lines, tubes, and devices: Lower cervical spine fusion hardware. Lungs and pleura: Clear. Cardiomediastinal silhouette: Unremarkable cardiomediastinal silhouette. Other: No acute osseous or upper abdominal finding. IMPRESSION: No acute cardiopulmonary process Reviewed, dictated and finalized at location K.
[2022-03-05 18:47] VITALS: BP 60/40; PULSE 81; RESP 20; O2SAT 97
--- NOTE | 2022-03-05 18:53 | ECG_ITS ---
Measurements Intervals [place] Rate: 80 P: [place]: 0 QRS: -3 QRSD: 126 T: 26 QT: 393 QTc: 456 Interpretive Statements SINUS RHYTHM ATRIAL PREMATURE COMPLEX INTRAVENTRICULAR CONDUCTION DELAY NONSPECIFIC ST ELEVATION IN DIFFUSE LEADS BASELINE ARTIFACT- I, II, III, AVR, AVL, AVF, V1-V6 BORDERLINE ECG Electronically Signed On 03-05-2022 20:40:10 CDT by [place] Arita D.O.
[2022-03-05 18:55] VITALS: PULSE 80; RESP 24; O2SAT 100
[2022-03-05] MEDS: LACTATED RINGERS 1,000 ML 999 ML IV CONT (19:01)
--- NOTE | 2022-03-05 19:15 | PC.NURSE ---
Report received from Heather RN. This nurse assumed care of patient at this time.
[2022-03-05 19:41] LABS: Basophils Percent Auto 0.5 % (0.2-1.2); Eosinophils Absolute Auto 0.1 K/mm3 (0-0.3); Eosinophils Percent Auto 1.4 % (0-4.4); Hematocrit 29.4 % (42.0-52.0); Hemoglobin 9.6 g/dL (14.0-18.0); Immature Granulocyte Absolute 0.02 K/mm3 (0.00-0.031); Immature Granulocyte Percent A 0.5 % (0-0.5); Lymphocytes Percent Auto 24.8 % (18.3-44.2); Mean Corpuscular HGB Conc 32.7 g/dl (32-36); Mean Corpuscular Hemoglobin 31.2 pg (26-34); Mean Corpuscular Volume 95.5 fl (80-100); Mean Platelet Volume 10.5 fl (7.4-10.4); Monocytes Absolute Auto 0.4 K/mm3 (0.1-0.6); Neutrophils Absolute Auto 2.8 K/mm3 (1.3-6.7); Neutrophils Percent Auto 63.8 % (45.5-73.1); Platelet Count Result 202 k/mm3 (150-375); Red Blood Count 3.08 M/mm3 (4.6-6.20); White Blood Count 4.4 K/mm3 (4.5-10.0)
[2022-03-05 19:52] LABS: INR 1.2; Prothrombin Time 14.7 Seconds (11.1-14.7)
[2022-03-05 19:53] LABS: Partial Thromboplastin Time 38.6 SECONDS (22.3-36.8)
[2022-03-05 19:55] LABS: Alanine Aminotransferase 28 U/L (6-50); Albumin Level 3.2 g/dL (3.5-5.1); Alkaline Phosphatase 75 U/L (38-126); Anion Gap 10 mmol/L (8-16); Aspartate Amino Transferase 25 U/L (17-59); Bilirubin,Total 0.5 mg/dL (0.2-1.3); Blood Urea Nitrogen 23 mg/dL (9-20); CRP 1.1 mg/dL (<1.0); Calcium 9.3 mg/dL (8.4-10.2); Carbon Dioxide 25 mmol/L (22-30); Chloride 105 mmol/L (98-107); Estimated CRCL calculation 127 ml/min; Estimated Glomerular Filt Rate > 60; Glucose 108 mg/dL (65-110); Potassium 3.8 mmol/L (3.4-5.0); Sodium 140 mmol/L (137-145)
[2022-03-05 19:56] LABS: Alveolar/Arterial O2 Gradient 8.3 mmHg; Base Excess ABG -0.8 mEq/l (+/-2.0); Carboxyhemoglobin 0.9 % THb (0-2.0); Device NON-INVASIVE VENT; Fractional Inspired Oxygen 21 %; HCO3 ABG 23.9 mEq/l (22.0-26.0); Methemoglobin ABG 0.3 %THb (0-1.5); Modified Allen's Test Pass; Non-Invasive Expiratory Pressure 5 CMH2O; Non-Invasive Inspiratory Pressure 16 CMH2O; Non-Invasive Vent Rate 14 /MIN; Oxygen Content ABG 13.7 %vol (16.0-22.0); Oxygen Saturation ABG 97.2 % (95.0-100.0); Oxyhemoglobin 94.3 % THb (90.0-100.0); PCO2 ABG 39.5 mmHg (35.0-45.0); PO2 ABG 94.1 mmHg (80.0-100.0); PO2 FiO2 Ratio Arterial Blood 4.48 %; Reduced Hemoglobin 4.5 %THb (0-5.0); Site Drawn RIGHT RADIAL; Total Hemoglobin 10.2 g/dL (12.0-18.0); pH ABG 7.399 (7.350-7.450)
[2022-03-05 20:00] LABS: Lactic Acid Reflex 5.3 mmol/L (0.7-2.0)
--- NOTE | 2022-03-05 20:02 | ED.GENADULT ---
HPI - General Adult General Chief complaint: Altered Mental Status Stated complaint: AMS History of Present Illness HPI narrative: Patient is 71-year-old male who presents ER with syncope and altered mental status. Patient has history of ALS. He is confined to a wheelchair. Apparently he had been sitting out in the warmth today and had had some margaritas. He then went into the garage and was putting on his BiPAP clinically wears in the evenings and at night. He then lost consciousness in front of his . There is no reports of infectious symptoms. For EMS patient's blood pressure in the 80s, not continues at this time. Patient is skin alert and oriented. No complaints of chest pain or shortness of breath. He is not feeling dizzy. He has chronic debility in his extremities. Related Data Home Medications Medication Instructions Recorded Confirmed Adults Multivitamin 03/05/22 apixaban [Eliquis] 5 mg PO BID 03/05/22 cholecalciferol (vitamin D3) 25 mcg PO DAILY 03/05/22 coenzyme Q10 100 mg PO DAILY 03/05/22 lorazepam 0.5 mg PO DAILY PRN 03/05/22 losartan 50 mg PO DAILY 03/05/22 omega-3 fatty acids [Fish Oil] 1,000 mg PO DAILY 03/05/22 omeprazole 20 mg PO BID 03/05/22 riluzole 50 mg PO BID 03/05/22 tamsulosin 0.4 mg PO HS 03/05/22 Allergies Allergy/AdvReac Type Severity Reaction Status Date / Time No Known Allergies Allergy Verified 03/05/22 19:02 Review of Systems Review of Systems: All systems reviewed & are unremarkable except as noted in HPI and below Constitutional: Constitutional: Denies chills, Denies fever(s) and Reports weakness Cardiovascular: Cardiovascular: Denies chest pain, Denies rapid heart rate and Denies radiating jaw, neck or arm pain Respiratory: Respiratory: Denies cough and Denies dyspnea Gastrointestinal: Gastrointestinal: Denies abdominal pain, Denies nausea and Denies vomiting Neurologic: Reports syncope, Denies headache(s) and Reports weakness (Chronic) [facility] Past Medical History Medical History (Updated 03/05/22 @ 21:42 by Parminder Bro MD) ALS (amyotrophic lateral sclerosis) Cervical myelopathy DVT (deep venous thrombosis) GERD (gastroesophageal reflux disease) History of left heart catheterization Hypertension Pulmonary embolism Type 2 diabetes mellitus Surgical History Surgical History (Updated 03/05/22 @ 20:10 by Parminder Bro MD) History of hip surgery History of tonsillectomy Hx of fusion of cervical spine Exam Narrative: GENERAL: Chronically ill-appearing, well-nourished, and in mild distress. HEAD: Normocephalic, atraumatic. EYES: PERRL and EOMI. ENT: Mucous membranes moist. CHEST: Clear to auscultation. No respiratory distress. HEART: Regular rate and rhythm. Normal peripheral pulses. ABDOMEN: Soft, nontender, nondistended. EXTREMITIES: Chronic weakness of the upper and lower extremities. Able to perform small movements. 2+ edema. SKIN: Warm, dry, no rash. NEURO: Alert and oriented x3. Course Course Emergency Course: Patient family informed of results. Admit to hospital service for observation and continued hydration. Vital Signs Vital signs: Vital Signs Pulse Rate 81 03/05/22 18:47 Respiratory Rate 20 03/05/22 18:47 Blood Pressure 60/40 L 03/05/22 18:47 Pulse Oximetry 97 03/05/22 18:47 Temperature 98.2 F 03/05/22 20:51 Pulse Rate 85 03/05/22 20:51 Respiratory Rate 24 H 03/05/22 20:51 Blood Pressure 148/78 H 03/05/22 20:51 Pulse Oximetry 97 03/05/22 20:51 Medical Decision Making Vital Signs Vital Signs: Vital Signs Pulse Rate 81 03/05/22 18:47 Respiratory Rate 20 03/05/22 18:47 Blood Pressure 60/40 L 03/05/22 18:47 Pulse Oximetry 97 03/05/22 18:47 Temperature 98.2 F 03/05/22 20:51 Pulse Rate 85 03/05/22 20:51 Respiratory Rate 24 H 03/05/22 20:51 Blood Pressure 148/78 H 03/05/22 20:51 Pulse Oximetry 97 03/05/22 20:51 Lab Data Result diagrams:
[2022-03-05 20:04] LABS: Troponin I < 0.012 ng/mL (0.000-0.034)
[2022-03-05 20:13] LABS: Ethanol 11 mg/dL (<10)
[2022-03-05 20:51] VITALS: BP 148/78; PULSE 85; RESP 24; TEMP 36.8; O2SAT 97
[2022-03-05] MEDS: SODIUM CHLORIDE 0.9% IV 1,000 ML 999 ML IV CONT (20:56)
--- NOTE | 2022-03-05 21:00 | PC.NURSE ---
Patient aware of need for urine specimen, unable to provide one at this time. Refused straight cath.
[2022-03-05 21:36] LABS: SARS-CoV-2 RNA PCR Negative
[2022-03-05 22:19] VITALS: BP 151/76; PULSE 83; RESP 17; TEMP 37; O2SAT 97
[2022-03-05 22:38] LABS: Reflex Lactic Acid Yes or No Add Lactic
[2022-03-05 22:46] VITALS: PULSE 99
[2022-03-05 23:07] VITALS: BP 165/79; PULSE 97; RESP 26; TEMP 36.3; O2SAT 97
[2022-03-05 23:09] VITALS: BMI 22.5
[2022-03-05] MEDS: SODIUM CHLORIDE 0.9% IV 1,000 ML 100 ML IV CONT (23:09)
[2022-03-05 23:16] LABS: Lactic Acid 0.8 mmol/L (0.7-2.0)
[2022-03-06] VITALS (9 sets, daily range): BP systolic 122–173; BP diastolic 68–72; PULSE 73–88; RESP 15–24; TEMP 36–36.6; O2SAT 98–100
[2022-03-06] MEDS: APIXABAN 5 MG TABLET PO ×2 (00:31→13:47)
--- NOTE | 2022-03-06 01:37 | ADMIMU ---
This patient, Brice Bull, was admitted to IMU status, and placed in IMU Room 213-01 at 2240. Patient/family oriented to hospital policies and general routines including ID bracelet, bed and alarms, visiting hours, pain management, procedures, bathroom and other care routines, personal items, smoking policy, room service/diet, and visiting hours. Information on how to activate the Rapid Response Team has been discussed. Patient/Family are encouraged to report perceived risks to care and to ask questions if they do not understand what they are told or what they should do.
--- NOTE | 2022-03-06 01:51 | PM.IMHP ---
H&P: HPI History of Present Illness Date/Time: 03/06/22 00:30 Chief Complaint: Passed out Narrative: 71-year-old male with past medical history of ALS, hypertension, and pulmonary embolism on Eliquis who presented to the ER via EMS from a family member's home after he had a syncopal episode. Patient reports that he was in town today visiting his son it. He had been sitting in his wheelchair in the garage in the sun. He went into the garage to use a urinal and passed out. He reported that for approximately 30 minutes before he passed out he had been feeling extremely warm and started to feel lightheaded. He also has developing shortness of breath. He does use his BiPAP periodically throughout the day due to ALS. He has had he uses BiPAP more frequently as time has progressed. He uses the BiPAP each night. He denies any increased shortness of breath at this time. He does have occasional cough but is unchanged from baseline. He does have occasional episodes of dysphagia but denies any recent episodes of choking or aspiration. He denies any fevers or chills. He has never been vaccinated against COVID. His COVID PCR in the ER was negative. The patient had had a Qing earlier in the day. The patient usually has 1 alcoholic beverage a week. Patient had no preceding palpitations or chest pain. The patient reports chronic lower extremity edema. He has chronic weakness of his extremities to to ALS. He has fairly good control of a shoulder muscles and gross movements of his biceps and triceps with limited motion of 1st 3 fingers on both hands. He denies any dysuria or changes in urinary frequency. He denies any history of urinary retention. He reports complete bladder emptying. His last bowel movement was yesterday and was normally formed without hematochezia or melena. The patient has not missed any doses of his home Eliquis. The patient lives in [facility]. He just arrived to town today. He was officially diagnosed with ALS in July of 2021. He has been wheelchair dependent since September 2021. Review of Systems Review of Systems: 12 systems were reviewed with pertinent positives and negatives per HPI. Except as documented in the HPI, all other systems were reviewed and are negative. [facility] Past Medical History Medical History (Updated 03/06/22 @ 04:14 by Nataliya Teran DO) ALS (amyotrophic lateral sclerosis) (~07/2021) Cervical myelopathy DVT (deep venous thrombosis) GERD (gastroesophageal reflux disease) History of left heart catheterization Hypertension Pulmonary embolism Type 2 diabetes mellitus Vitamin D deficiency Surgical History Surgical History (Updated 03/06/22 @ 04:13 by Nataliya Teran DO) Fusion of lumbar spine History of right hip replacement History of tonsillectomy Hx of fusion of cervical spine The patient reports that he had cardiac arrest during anesthesia for is cervical spine surgery. He states he was at that time that the found he had bilateral PEs and DVTs. Family History Family History (Updated 03/06/22 @ 04:06 by Nataliya Teran DO) Father Acute myocardial infarction History of blood clots Cerebrovascular accident Lung cancer Pt believes father had lung cancer, reports that he was a heavy smoker Mother Thyroid disease Social History Social History (Updated 03/06/22 @ 04:08 by Nataliya Teran DO) Social History: The patient lives in [facility] with his of 42 years. He reports that they have been together for 51 years. They have 1 son and 1 daughter and 4 grandchildren. 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 Patient usually drinks 1 alcoholic beverage a week. He is wheelchair dependent. Code status: DNR/DNI per patient request Surrogate decision maker: Smoking status: Never smoker Second hand tobacco smoke exposure: Yes Alcohol intake: current Substance use: never Other s
[2022-03-06 06:11] LABS: Appearance Urine Clear (Clear); Bilirubin Urine Negative (Negative); Color Urine Yellow (Yellow); Glucose Urine UA Negative (Negative); Ketones Urine Negative (Negative); Leukocyte Esterase Ur Negative LEU/UL (Negative); Nitrate Urine Negative (Negative); Protein Urine Negative (Negative); Specific Grav Ur 1.025 (1.001-1.035)
[2022-03-06 06:37] LABS: Mucus Urine Rare /lpf; Squamous Epithelial Cell Urine Rare /hpf (Few); WBC Urine 0-3 /hpf
[2022-03-06 06:38] LABS: Add Urine Microscopic? YES; Blood Urine Trace-Intact (Negative)
[2022-03-06] MEDS: PANTOPRAZOLE 40 MG TABLET PO (10:00)
[2022-03-06] MEDS: MULTIVITAMINS THERAPEUTIC TAB (*BKC) 1 TABLET PO (10:00)
[2022-03-06] MEDS: SODIUM CHLORIDE 0.9% IV 1,000 ML 100 ML IV CONT (10:00)
[2022-03-06] MEDS: LOSARTAN POTASSIUM 50 MG TABLET PO (10:00)
[2022-03-06] MEDS: OMEGA 3 POLYUNSAT FATTY ACIDS 1 GM CAP PO (10:00)
--- NOTE | 2022-03-06 13:56 | PM.DS ---
DS: Admitting Diagnosis Discharge Date March 06, 2022 Admitting Diagnosis Presyncope DS: Discharge Diagnosis Discharge Diagnosis (1) Syncope: Qualifiers: Syncope type: vasovagal syncope Qualified Code(s): R55 - Syncope and collapse Code(s): R55 - Syncope and collapse Status: Acute (2) Transient hypotension: Code(s): I95.9 - Hypotension, unspecified Status: Acute (3) Chronic respiratory failure: Qualifiers: Respiratory failure complication: unspecified whether with hypoxia or hypercapnia Qualified Code(s): J96.10 - Chronic respiratory failure, unspecified whether with hypoxia or hypercapnia Code(s): J96.10 - Chronic respiratory failure, unspecified whether with hypoxia or hypercapnia Status: Acute DS: Summary Hospital Course Reason for hospitalization: Presyncope Hospital Course: 71-year-old male with past medical history significant for ALS, hypertension and pulmonary embolism currently being treated with Eliquis presented to the ER with a presyncopal episode. He was in town visiting his son sitting in his wheelchair in the garage in the sun. He states he drank a little bit alcohol and he felt very warm and lightheaded when he tried to go to the bathroom. He also developed some shortness of breath however he is essentially of BiPAP dependent nocturnally and uses it occasionally during the day as well. He does occasionally have episodes of dysphagia but denies aspiration or choking. COVID was negative. He was admitted with IV fluids, monitor in telemetry. Symptoms never resolved and so he was discharged in good condition on his home medications and recommended to avoid heat now call with his neurological condition. Time Spent with Patient Time attestation: Total time spent providing and/or coordinating discharge services: Less than 30 minutes Exam Narrative: PHYSICAL EXAM: WEIGHT 75.3 kg BMI 22.5 General: No acute distress, well-developed well-nourished, sitting up in bed the head of bed at 60? 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 strength of the 1st 3 fingers of bilateral hands Neurological: Mild dysarthria, alert oriented x4, no facial asymmetry, pupils are equal and reactive Psychiatric: Appropriate mood and affect, pleasant and cooperative, judgment insight intact : Continent of urine Hematologic/lymphatic: No anterior cervical or submandibular lymphadenopathy DS: Data Data Completed and Pending Labs on day of discharge: Labs from last 24 hours 03/06/22 03/05/22 03/05/22 06:01 23:00 20:52 WBC RBC Hgb Hct MCV MCH MCHC RDW Plt Count MPV Immature Gran % (Auto) Neut % (Auto) Lymph % (Auto) Kane % (Auto) Eos % (Auto) Baso % (Auto) Lymph # (Auto) Kane # (Auto) Eos # (Auto) Baso # (Auto) Abs Immat Gran (auto) Absolute Neuts (auto) Absolute Nucleated RBC Nucleated RBC % PT INR APTT Puncture Site ABG pH ABG pCO2 ABG pO2 ABG PO2/FiO2 Ratio ABG HCO3 ABG O2 Saturation ABG O2 Content ABG Base Excess A-a Gradient Oxyhemoglobin Carboxyhemoglobin Methemoglobin Reduced Hemoglobin Total Hemoglobin O2 Delivery Device O2 Liters/Min Vent Rate FiO2 Expiratory Pressure Inspiratory Pressure Sodium Potassium Chloride Carbon Dioxide Anion Gap BUN Creatinine Estim Creat Tom
--- NOTE | 2022-03-06 15:03 | PC.NURSE ---
Pt discharged per MD. Pt left off unit stable, with , G[employer]OCK [employer] and all personal belongings.
== END 2022-03-06 14:58 | disposition home health service (06) ==
LOC: ANHED 21:42 → ANHIMU 21:51
PROVIDERS: Admitting Provider Internal Medicine; Emergency Provider Emergency Medicine; Visit Provider Student in an Organized Health Care Education/Training Program
DX: R55 Syncope and collapse (principal); J96.10 Chronic respiratory failure, unspecified whether with hypoxia or hypercapnia; I95.9 Hypotension, unspecified; R41.82 Altered mental status, unspecified; Z99.3 Dependence on wheelchair; I10 Essential (primary) hypertension; E11.9 Type 2 diabetes mellitus without complications; K21.9 Gastro-esophageal reflux disease without esophagitis; Z86.718 Personal history of other venous thrombosis and embolism; Z79.01 Long term (current) use of anticoagulants; Z96.641 Presence of right artificial hip joint; Z20.822 Contact with and (suspected) exposure to COVID-19
CPT/HCPCS: 36415; 36600; 71045; 80053; 80307; 81001; 82375; 82805; 83050; 83605; 84484; 85025; 85610; 85730; 86140; 87040; 93005; 94002; 94003; 96360; 96361; 99285; A9270; C9803; G0378; J7030; J7120; U0003; U0005